=== PATIENT | male | born 1940 | race Caucasian/White ===

== ENCOUNTER 2017-08-01 17:31 | Emergency (ER) | payer OTHER, MEDICAID ==
[~2017-08-01] VITALS: Ht 160 cm; Wt 66.4 kg
[~2017-08-01 17:31] MED LIST: ATEN50TA8 PO; COZ50 PO; METF500T PO
[2017-08-01 17:33] VITALS: BP 151/73
--- NOTE | 2017-08-01 17:41 | NUR ---
PATIENT AMBULATED TO BED 12.
--- NOTE | 2017-08-01 18:20 | NUR ---
77m bib with c/o dry hacking cough, body aches, chills, 7/10 constant sore throat and heachache; Pt denies any sob or cp. Pt is aox4 with steady gait. Skin is warm/color appriopriate for ethnicity/dry. RR are even and unlabored. No acute distress. Er md de oliveira by bedside examining patient. Will continue to monitor.
[2017-08-01] MEDS ORDERED: KETOROLAC 30 MG/ML VIAL IVP ONE (18:25)
[2017-08-01] MEDS ORDERED: NACL 0.9% 1,000 ML IV ONE (18:25)
--- NOTE | 2017-08-01 18:44 | NUR ---
influenza swab collected and sent to lab
[2017-08-01 18:55] LABS: BASOPHILS # (AUTO) 0.5 K/uL (0.00-0.22); EOSINOPHILS # (AUTO) 0.4 K/uL (0-0.4); HEMATOCRIT 47.2 % (36-52); HEMOGLOBIN 15.5 g/dL (12.0-18.0); LYMPHOCYTES # (AUTO) 2.7 K/uL (2.0-11.5); MEAN CORPUSCULAR HEMOGLOBIN 30 pg (27-31); MEAN CORPUSCULAR HGB CONC 33 g/dL (33-37); NEUTROPHILS # (AUTO) 6.7 K/uL (1.8-7.7); PLATELET COUNT (AUTO) 248 K/uL (140-450); RED BLOOD CELL COUNT(AUTO) 5.13 MIL/uL (4.20-6.10); RED CELL DISTRIBUTION WIDTH 12.9 % (11.6-13.7); WHITE BLOOD COUNT (AUTO) 11.3 K/uL (4.8-10.8)
--- NOTE | 2017-08-01 19:29 | NUR ---
Pt report given to Kavitha GALLEGOS. Transfer of care at this time.
--- NOTE | 2017-08-01 19:30 | NUR ---
Patient appears to be resting comfortably in bed. Vital Signs within normal limits. Respirations even and unlabored.
[2017-08-01 20:32] LABS: ANION GAP 15.8 (8-16); ASPARTATE AMINOTRANSFERASE 14 U/L (15-37); CARBON DIOXIDE 28.1 mmol/L (21-32); CHLORIDE 99 mmol/L (98-107); POTASSIUM 3.9 mmol/L (3.5-5.1); SODIUM SERUM 139 mmol/L (136-145); TOTAL BILIRUBIN 0.8 mg/dL (0.0-1.0); UREA NITROGEN, BLOOD 20 mg/dL (7-18)
[2017-08-01] MEDS ORDERED: AMPICILLIN/SULBACTAM 1.5 GM in NACL 0.9% 50 ML IV ONE (20:50)
[2017-08-01 20:56] LABS: ALBUMIN 4.3 g/dL (3.4-5.0); CREATININE 1.2 mg/dL (0.7-1.3)
[2017-08-01 20:58] LABS: GLUCOSE 108 mg/dL (74-106)
[2017-08-01] MEDS ORDERED: AMPICILLIN/SULBACTAM 1.5 GM VIAL ONE (21:01)
--- NOTE | 2017-08-01 21:52 | NUR ---
Patient appears to be resting comfortably in bed. Respirations even and unlabored. All needs met at this time.
--- NOTE | 2017-08-01 22:50 | NUR ---
Patient discharged with v/s stable. Written and verbal after care instructions given and explained by Dr. Swan. Patient alert, oriented and verbalized understanding of instructions. Ambulatory with steady gait. All questions addressed prior to discharge. ID band removed. Patient advised to follow up with PMD. Rx given. Patient educated on indication of medication including possible reaction and side effects. Opportunity to ask questions provided and answered by Dr. Swan.
[2017-08-01 22:51] VITALS: BP 129/60
== END 2017-08-01 22:50 | disposition home or self-care (01) ==
LOC: MED 17:31
DX: J06.9 Acute upper respiratory infection, unspecified (principal); E11.9 Type 2 diabetes mellitus without complications; I10 Essential (primary) hypertension; E78.00 Pure hypercholesterolemia, unspecified
CPT/HCPCS: 36415; 71046; 80053; 83605; 84484; 85025; 87040; 87804; 93005; 96365; 96375; 99285; J0295; J1885

== ENCOUNTER 2017-09-03 14:02 | Inpatient (IN) | payer OTHER, MEDICAID ==
[~2017-09-03] VITALS: Ht 162.6 cm; Wt 65.8 kg
[2017-09-03 14:06] VITALS: BP 168/90
--- NOTE | 2017-09-03 14:12 | NUR ---
77Y/M BIB SON COMPLAINING OF LEFT SIDED CHEST PAIN RADIATING TO LEFT ARM, HEAD, AND NECK SINCE THIS MORNING. PATIENT DENIES N/V/D. RX CURRENTLY METFORMIN, ATENOLOL, LOSARTAN, AND TAMSULOSIN. HX HTN, DIABETES. SKIN IS PINK/WARM/DRY; AAOX4 WITH EVEN AND STEADY GAIT; PT DENIES ANY FEVER, PATIENT STATES PAIN OF 5/10 AT THIS TIME; PATIENT POSITIONED FOR COMFORT; HOB ELEVATED; BEDRAILS UP X2; BED DOWN. ER MD MADE AWARE OF PT STATUS.
--- NOTE | 2017-09-03 14:19 | NUR ---
PATIENT TO BED 11 AT THIS TIME,
[2017-09-03] MEDS ORDERED: NACL 0.9% 1,000 ML IV ONE (14:29)
[2017-09-03] MEDS ORDERED: ONDANSETRON 4 MG/2 ML VIAL IVP ONE (14:30)
[2017-09-03] MEDS ORDERED: MORPHINE SULFATE 4 MG/ML SYR IVP ONE (14:30)
[2017-09-03 15:15] LABS: BASOPHILS % (AUTO) 0.3 % (0.0-2.0); EOSINOPHILS % (AUTO) 0.4 % (0.0-4.0); HEMATOCRIT 42.6 % (36-52); HEMOGLOBIN 14.3 g/dL (12.0-18.0); LYMPHOCYTES # (AUTO) 2.2 K/uL (2.0-11.5); LYMPHOCYTES % (AUTO) 18.2 % (20.5-51.1); MEAN CORPUSCULAR HEMOGLOBIN 31 pg (27-31); MEAN CORPUSCULAR HGB CONC 34 g/dL (33-37); MEAN CORPUSCULAR VOLUME 92.8 fL (80-94); NEUTROPHILS # (AUTO) 8.8 K/uL (1.8-7.7); NEUTROPHILS % (AUTO) 73.1 % (42.2-75.2); PLATELET COUNT (AUTO) 245 K/uL (140-450); RED CELL DISTRIBUTION WIDTH 13.6 % (11.6-13.7); WHITE BLOOD COUNT (AUTO) 12.1 K/uL (4.8-10.8)
[2017-09-03 15:24] LABS: CARBON DIOXIDE 25.8 mmol/L (21-32); CHLORIDE 102 mmol/L (98-107); CREATININE 1.2 mg/dL (0.7-1.3); GLUCOSE 278 mg/dL (74-106); POTASSIUM 3.8 mmol/L (3.5-5.1); SODIUM SERUM 137 mmol/L (136-145); UREA NITROGEN, BLOOD 25 mg/dL (7-18)
[2017-09-03 15:30] LABS: ALBUMIN 3.4 g/dL (3.4-5.0); ASPARTATE AMINOTRANSFERASE 32 U/L (15-37); LIPASE 177 U/L (73-393); TOTAL BILIRUBIN 0.4 mg/dL (0.0-1.0)
[2017-09-03] MEDS ORDERED: ASPIRIN 325 MG TAB PO ONE (16:40)
[2017-09-03] MEDS ORDERED: NITROGLYCERIN 0.4 MG TAB SL ONE (16:40)
--- NOTE | 2017-09-03 17:22 | NUR ---
Patient will be admitted to care of DR. ENGEL. Admited to TELE. Will go to [facility]. Belongings list completed. Report to ROSY LANDEROS.
[2017-09-03 17:30] VITALS: BP 164/75
--- NOTE | 2017-09-03 17:30 | NUR ---
PATIENT WAS TRANSFERRED FROM ER. REPORT WAS GIVEN AT BEDSIDE. EMULSION OPERATOR WAS PLACED. PATIENT AWAKE, ALERT, AMBULATED SELF TO BED, STEADY GAIT. RESPIRATION EVEN, UNLABOR ON ROOM AIR. SKIN DRY AND WARM. IV PATENT AND INTACT. COMPLAINED OF CHEST PAIN THAT IS DECREASING TO 7/10, WILL MEDICATE PER ORDER. PLAN OF CARE WAS DISCUSSED WITH PATIENT. PATIENT WAS ORIENTED TO ROOM, STAFF, AND CALL LIGHT. VS IS TAKEN, MRSA WAS SWABBED. FAMILY AT BED SIDE. CALL LIGHT WITHIN REACH.
--- NOTE | 2017-09-03 18:15 | NUR ---
DR. ENGEL WAS MADE AWARE OF PATIENT'S HIGH BP AND CHEST PAIN. ORDERS WERE RECEIVED, WILL MEDICATE PER ORDER.
[2017-09-03] MEDS ORDERED: cloNIDine 0.1 MG TAB PO PRN (18:20)
--- NOTE | 2017-09-03 19:17 | NUR ---
ENDORSEMENT GIVEN TO THE DEPUTY JAILER NURSE. PATIENT IS STABLE
--- NOTE | 2017-09-03 19:18 | NUR ---
PATIENT REPORT RECEIVED FROM MORNING NURSE AT BEDSIDE. PATIENT IS AWAKE, ALERT AND ORIENTED. NEPALI SPEAKING. PATIENT'S FAMILY IS AT BEDSIDE. NO SIGNS AND SYMPTOMS OF DISTRESS NOTED. PATIENT COMPLAINS OF 7/10 HEADACHE. WILL MEDICATE ORDERED. PLAN OF CARE DISCUSSED WITH PATIENT AND FAMILY. FAMILY VERBALIZED UNDERSTANDING. BED IN LOWEST POSITION, SIDE RAILS UP AND CALL LIGHT WITHIN REACH. WILL CONTINUE TO MONITOR.
[2017-09-03 20:00] VITALS: BP 135/90
[2017-09-03] MEDS ORDERED: MORPHINE SULFATE 4 MG/ML SYR IVP PRN ×2 (20:05→20:20)
[2017-09-03] MEDS ORDERED: HYDROcodone/APAP 5/325 MG 1 TAB TAB PO PRN ×2 (20:05→20:20)
[2017-09-03] MEDS ORDERED: ALUMINUM HYD/MAG/SIMETHICONE 30 ML UDC PO PRN (20:20)
[2017-09-03] MEDS ORDERED: LORazepam 1 MG TAB PO PRN (20:20)
[2017-09-03] MEDS ORDERED: ZOLPIDEM 5 MG TAB PO PRN (20:20)
[2017-09-03] MEDS ORDERED: ONDANSETRON 4 MG/2 ML VIAL IVP PRN (20:20)
[2017-09-03] MEDS ORDERED: NITROGLYCERIN 0.4 MG TAB SL PRN (20:20)
[2017-09-03] MEDS: BLOOD GLUCOSE MONITORING 1 DEV DEV FS SCH (20:36)
--- NOTE | 2017-09-03 21:11 | NUR ---
MEDICATED PATIENT ORDERED FOR 11/18 PAIN. PATIENT TOLERATED WELL. WILL CONTINUE TO MONITOR.
--- NOTE | 2017-09-03 22:00 | NUR ---
CHECKED ON PATIENT. PATIENT IS ASLEEP. NO SIGNS AND SYMPTOMS OF DISTRESS NOTED. BREATHING EVEN AND UNLABORED. WILL CONTINUE TO MONITOR.
[2017-09-04] VITALS: BP 145/72
[2017-09-04 00:48] LABS: CREATINE KINASE MB 2.2 ng/mL (0-3.6)
--- NOTE | 2017-09-04 02:00 | NUR ---
CHECKED ON PATIENT. PATIENT IS ASLEEP. NO SIGNS AND SYMPTOMS OF DISTRESS NOTED. BREATHING EVEN AND UNLABORED. WILL CONTINUE TO MONITOR.
[2017-09-04 04:00] VITALS: BP 138/68
--- NOTE | 2017-09-04 05:00 | NUR ---
PATIENT COMPLAINED OF MILD HEADACHE. PATIENT MEDICATED ORDERED.
[2017-09-04] MEDS: ACETAMINOPHEN 325 MG TAB PO PRN ×2 (05:32→16:21)
[2017-09-04] MEDS: BLOOD GLUCOSE MONITORING 1 DEV DEV FS SCH ×5 (06:48→20:48)
--- NOTE | 2017-09-04 07:17 | NUR ---
PATIENT REPORT GIVEN TO MORNING NURSE AT BEDSIDE. PATIENT IS IN STABLE CONDITION
--- NOTE | 2017-09-04 07:17 | NUR ---
ASSUMED CONTINUITY OF CARE. NO SIGNS AND SYMPTOMS OF ACUTE DISTRESS NOTICED. INITIAL ASSESSMENT DONE. EXPLAINED DIAGNOSIS, PLAN OF CARE, PAIN MANAGEMENT TEACHING, USE OF CALL LIGHT/BED/TV/BATHROOM. VERBALIZED UNDERSTANDING. CALL LIGHT WITHIN REACH.
[2017-09-04 07:47] LABS: BASOPHILS % (AUTO) 0.4 % (0.0-2.0); EOSINOPHILS # (AUTO) 0.3 K/uL (0-0.4); EOSINOPHILS % (AUTO) 2.9 % (0.0-4.0); HEMOGLOBIN 14.5 g/dL (12.0-18.0); LYMPHOCYTES # (AUTO) 2.5 K/uL (2.0-11.5); LYMPHOCYTES % (AUTO) 27.7 % (20.5-51.1); MEAN CORPUSCULAR HEMOGLOBIN 31 pg (27-31); MEAN CORPUSCULAR HGB CONC 34 g/dL (33-37); MONOCYTES # (AUTO) 0.6 K/uL (0.8-1.0); MONOCYTES % (AUTO) 7.1 % (1.7-9.3); NEUTROPHILS # (AUTO) 5.5 K/uL (1.8-7.7); NEUTROPHILS % (AUTO) 61.9 % (42.2-75.2); PLATELET COUNT (AUTO) 226 K/uL (140-450); RED BLOOD CELL COUNT(AUTO) 4.62 MIL/uL (4.20-6.10); RED CELL DISTRIBUTION WIDTH 13.7 % (11.6-13.7); WHITE BLOOD COUNT (AUTO) 8.9 K/uL (4.8-10.8)
[2017-09-04 08:00] VITALS: BP 119/66
[2017-09-04] MEDS: DOCUSATE SODIUM 100 MG GELCAP PO SCH (08:18)
[2017-09-04] MEDS: metFORMIN 500 MG TAB PO SCH ×2 (08:18→16:19)
[2017-09-04 08:23] LABS: ANION GAP 8.9 (8-16); CARBON DIOXIDE 29.8 mmol/L (21-32); CHLORIDE 102 mmol/L (98-107); GLUCOSE 151 mg/dL (74-106); POTASSIUM 4.7 mmol/L (3.5-5.1); SODIUM SERUM 136 mmol/L (136-145); UREA NITROGEN, BLOOD 19 mg/dL (7-18)
[2017-09-04] MEDS: LOSARTAN 50 MG TAB PO SCH ×2 (08:25→09:51)
[2017-09-04 08:27] LABS: MAGNESIUM 1.8 mg/dL (1.8-2.4); PHOSPHORUS 3.2 mg/dL (2.5-4.9)
[2017-09-04 08:38] LABS: CREATINE KINASE MB 1.4 ng/mL (0-3.6)
[2017-09-04] MEDS ORDERED: ATENOLOL 50 MG TAB PO SCH (09:00)
--- NOTE | 2017-09-04 09:48 | NUR ---
CRYS FLANAGAN CAME, INFORMED OF PT. C/O HEADACHE ON THE LEFT SIDE THAT RADIATES TO LEFT SHOULDER THROUGH LEFT SIDE OF CHEST 06/21. PER CRYS FLANAGAN THAT IS MOSTLY FROM NECK PROBLEM NOT A HEART PROBLEM. ASKED CRYS FLANAGAN FOR ORDERS. NO ORDER RECEIVED. ALSO INFORMED CRYS FLANAGAN ABOUT PT. HEART RATE AT 0800 WAS 53. PER RCYS FLANAGAN, "OK TO GIVE COZAAR 50 MG PO DAILY, AND START ATENOLOL 25 MG PO DAILY 11/05/17 AND HOLD IF HR BELOW 60." INFORMED CHARGE NURSE GWYN LY -ROSY.
--- NOTE | 2017-09-04 09:55 | NUR ---
PATIENT HAS BEEN SCREENED AND CATEGORIZED MODERATE NUTRITION RISK. PATIENT WILL BE SEEN WITHIN 3-5 DAYS OF ADMISSION. 09/06/17 - 09/08/[address]
--- NOTE | 2017-09-04 10:35 | NUR ---
WENT TO RADIOLOGY VIA WHEELCHAIR. IN STABLE CONDITION.
--- NOTE | 2017-09-04 11:44 | NUR ---
CALLED CRYS FLANAGAN AND INFORMED OF PT. EKG RESULTS OF SB, HR 53 BPM, INFERIOR INFARCT. NO ORDER RECEIVED. ALSO INFORMED CHARGE NURSE GWYN GARIBAY.
[2017-09-04] MEDS: INSULIN LISPRO SLIDING SCALE 100 UNITS/ML VIAL SUBQ PRN ×2 (11:59→20:51)
[2017-09-04 12:00] VITALS: BP 133/69
--- NOTE | 2017-09-04 14:25 | NUR ---
WENT TO BATHROOM WITHOUT ASSISTANCE. TOLERATED WELL. NO C/O PAIN. NO SOB, NOTED.
--- NOTE | 2017-09-04 15:23 | NUR ---
CM NOTE INITIAL REVIEW FAXED TO [facility] / FAX# [phone]
[2017-09-04 16:00] VITALS: BP 125/72
--- NOTE | 2017-09-04 16:00 | NUR ---
VITALS SIGNS STABLE. C/O HEADACHE 10/19. NO ACUTE DISTRESS NOTED. WILL MEDICATE PER MD ORDER.
--- NOTE | 2017-09-04 19:08 | NUR ---
BEDSIDE REPORT GIVEN TO NATE GARIBAY. IN STABLE CONDITION.
--- NOTE | 2017-09-04 19:10 | NUR ---
RECEIVED PATIENT SITTING ON THE SIDE OF THE BED WITH FAMILY MEMBER. BED IN LOW POSITION, CALL LIGHT WITHIN REACH. DISCUSSED ABOUT PLAN OF CARE. WILL CONTINUE TO MONITOR.
[2017-09-04 20:00] VITALS: BP 115/60
--- NOTE | 2017-09-04 21:00 | NUR ---
BLOOD SUGAR TEST 187 COVERAGE WITH 2 UNITS SUBQ HUMALOG FOLLOWING PROTOCOL.
--- NOTE | 2017-09-04 23:30 | NUR ---
SEEN PATIENT ASLEEP IN BED BUT EASILY AROUSABLE. FALL PRECAUTION IMPLEMENTED. CALL LIGHT WITHIN REACH. WILL CONTINUE TO MONITOR
[2017-09-05] VITALS: BP 111/63
--- NOTE | 2017-09-05 01:05 | NUR ---
SEEN PATIENT ASLEEP IN COMFORTABLE POSITION. BED IN LOW POSITION. CALL LIGHT WITHIN REACH.
--- NOTE | 2017-09-05 03:20 | NUR ---
SEEN PATIENT ASLEEP ON BED BUT EASILY AROUSABLE. CALL LIGHT WITHIN REACH.
[2017-09-05 04:00] VITALS: BP 112/66
--- NOTE | 2017-09-05 05:20 | NUR ---
SEEN PATIENT AWAKE SITTING IN THE SIDE OF THE BED. PATIENT IS AMBULATORY AND INDEPENDENT . CALL LIGHT WITHIN REACH.
[2017-09-05 05:44] LABS: BASOPHILS % (AUTO) 0.4 % (0.0-2.0); EOSINOPHILS # (AUTO) 0.5 K/uL (0-0.4); EOSINOPHILS % (AUTO) 4.5 % (0.0-4.0); HEMATOCRIT 44.7 % (36-52); HEMOGLOBIN 15.3 g/dL (12.0-18.0); LYMPHOCYTES # (AUTO) 2.9 K/uL (2.0-11.5); LYMPHOCYTES % (AUTO) 28.7 % (20.5-51.1); MEAN CORPUSCULAR HEMOGLOBIN 32 pg (27-31); MEAN CORPUSCULAR HGB CONC 34 g/dL (33-37); MEAN CORPUSCULAR VOLUME 93.3 fL (80-94); MONOCYTES # (AUTO) 0.7 K/uL (0.8-1.0); MONOCYTES % (AUTO) 7.2 % (1.7-9.3); NEUTROPHILS % (AUTO) 59.2 % (42.2-75.2); PLATELET COUNT (AUTO) 240 K/uL (140-450); RED BLOOD CELL COUNT(AUTO) 4.79 MIL/uL (4.20-6.10); RED CELL DISTRIBUTION WIDTH 13.4 % (11.6-13.7); WHITE BLOOD COUNT (AUTO) 10.2 K/uL (4.8-10.8)
[2017-09-05 06:30] LABS: ANION GAP 11.1 (8-16); CARBON DIOXIDE 31.6 mmol/L (21-32); CHLORIDE 99 mmol/L (98-107); GLUCOSE 164 mg/dL (74-106); POTASSIUM 4.7 mmol/L (3.5-5.1); SODIUM SERUM 137 mmol/L (136-145); UREA NITROGEN, BLOOD 28 mg/dL (7-18)
--- NOTE | 2017-09-05 07:35 | NUR ---
ENDORSEMENT GIVEN TO AM SHIFT NURSE FOR CONTINUITY OF CARE. PATIENT IN STABLE CONDITION.
--- NOTE | 2017-09-05 07:36 | NUR ---
RECEIVED REPORT FROM NON PROFIT DIRECTOR NURSE. PATIENT LYING DOWN IN BED SLEEPING, AROUSABLE BY VOICE. NO DISTRESS NOTED. DENIES ANY PAIN AT THIS TIME. RESPIRATIONS EVEN, UNLABORED, ON ROOM AIR. AAOX4, CALM, COOPERATIVE, SKIN COLOR APPROPRIATE TO ETHNICITY, WARM TO TOUCH. SKIN IS INTACT. ABDOMEN SOFT, NON-DISTENDED. LUNGS CTA ON ALL LOBES. IV SITE INTACT, PATENT, ON SALINE LOCK. REVIEWED PLAN OF CARE WITH PATIENT. PATIENT VERBALIZED UNDERSTANDING. SAFETY MEASURES IN PLACE, CALL LIGHT WITHIN REACH. WILL CONTINUE TO MONITOR.
[2017-09-05 08:00] VITALS: BP 123/70
[2017-09-05] MEDS: DOCUSATE SODIUM 100 MG GELCAP PO SCH (08:36)
[2017-09-05] MEDS: metFORMIN 500 MG TAB PO SCH (08:37)
[2017-09-05] MEDS: LOSARTAN 50 MG TAB PO SCH (08:37)
--- NOTE | 2017-09-05 08:38 | NUR ---
PATIENT WALKING AROUND AT BEDSIDE WITH STEADY GAIT. NO DISTRESS NOTED. DENIES ANY PAIN. SCHEDULED MEDICATIONS DUE GIVEN. SAFETY MEASURES IN PLACE, CALL LIGHT WITHIN REACH. WILL CONTINUE TO MONITOR.
[2017-09-05] MEDS ORDERED: ATENOLOL 50 MG TAB PO SCH (09:00)
--- NOTE | 2017-09-05 11:30 | NUR ---
PATIENT SITTING DOWN IN BED WATCHING TV. NO DISTRESS NOTED. DENIES ANY PAIN. CONDITION UNCHANGED. WILL CONTINUE TO MONITOR.
[2017-09-05] MEDS: INSULIN LISPRO SLIDING SCALE 100 UNITS/ML VIAL SUBQ PRN (11:43)
[2017-09-05] MEDS: BLOOD GLUCOSE MONITORING 1 DEV DEV FS SCH (11:44)
[2017-09-05 12:01] VITALS: BP 116/60
--- NOTE | 2017-09-05 13:30 | NUR ---
DR. ENGEL AT BEDSIDE REVIEWING PLAN OF CARE WITH PATIENT. PATIENT TO BE DISCHARGED HOME TODAY. WILL PREPARE DISCHARGE PAPERWORK. WILL CONTINUE TO MONITOR.
[2017-09-05] MEDS ORDERED: ATEN50TA2 PO (13:40)
--- NOTE | 2017-09-05 14:40 | NUR ---
DISCHARGE INSTRUCTIONS PROVIDED TO PATIENT IN [place], FAMILY MEMBERS AT BEDSIDE, PATIENT PREFERRED TO HAVE FAMILY MEMBER TRANSLATE DISCHARGE INSTRUCTIONS INSTEAD OF USING OFFICIAL BLUE PLATEN BUILDER UP PHONE THAT WAS OFFERED TO HIM. FOLLOW-UP VISIT WITH MD, NEW/CHANGED. MEDICATIONS REGIMEN, DIET REGIMEN, AND DISEASE PROCESS/MANAGEMENT OF CHEST PAIN EDUCATION PROVIDED TO PATIENT. ANSWERED ALL OF PATIENT'S/FAMILY QUESTIONS REGARDING DISCHARGE. ID BANDS REMOVED. IV SITE REMOVED WITH MINIMAL BLOOD AND LUMEN COMPLETELY INTACT. PATIENT TO GET DRESSED AND THEN TO DISCHARGE HOME WITH FAMILY MEMBERS AT BEDSIDE. WILL CONTINUE TO MONITOR.
--- NOTE | 2017-09-05 16:10 | NUR ---
FAXED CONCURRENT REVIEW TO [facility] [phone] PHONE [phone]
--- NOTE | 2017-09-08 14:27 | NUR ---
RECEIVED REQUEST FROM [facility] FOR H&P, DISCHARGE SUMMARY AND MED RECONCILIATION LIST. ALL FAXED TO [facility] AT [phone] PHONE BRISSA [phone]
== END 2017-09-05 14:55 | disposition home or self-care (01) | DRG 556 ==
LOC: MED 14:02 → MMU 17:01 → MTU 17:22
PROVIDERS: ADMIT Preventive Medicine Preventive Medicine/Occupational Environmental Medicine; ATTEND Preventive Medicine Preventive Medicine/Occupational Environmental Medicine
DX: M79.1 Myalgia (principal); E11.65 Type 2 diabetes mellitus with hyperglycemia; I11.9 Hypertensive heart disease without heart failure; R07.89 Other chest pain; R00.1 Bradycardia, unspecified; E83.51 Hypocalcemia; R79.89 Other specified abnormal findings of blood chemistry; M50.90 Cervical disc disorder, unspecified, unspecified cervical region; R51 Headache; D72.829 Elevated white blood cell count, unspecified; E78.5 Hyperlipidemia, unspecified; M47.812 Spondylosis without myelopathy or radiculopathy, cervical region; T44.7X5A Adverse effect of beta-adrenoreceptor antagonists, initial encounter; Z90.49 Acquired absence of other specified parts of digestive tract; Y92.89 Other specified places as the place of occurrence of the external cause; Z79.899 Other long term (current) drug therapy
CPT/HCPCS: 36415; 70450; 71045; 72040; 80048; 80053; 82550; 82553; 82948; 83690; 83735; 84100; 84484; 85025; 87081; 93005; 96361; 96374; 96375; 99285; J2270; J2405

== ENCOUNTER 2018-04-20 10:05 | Emergency (ER) | payer OTHER, MEDICAID ==
[~2018-04-20] VITALS: Ht 160 cm; Wt 74.8 kg
[~2018-04-20 10:05] MED LIST changes: +ATEN50TA2 PO; -ATEN50TA8 PO
--- NOTE | 2018-04-20 10:07 | NUR ---
PT AMBULATED TO ER BED 07
[2018-04-20 10:12] VITALS: BP 133/47
--- NOTE | 2018-04-20 10:25 | NUR ---
BROUGHT IN BY FAMILY PT C/O AWOKE WITH GENERAL WEAKNESS, EQUALLY NUMBNESS; OCCIPITAL HEADACHE X TODAY; DENIES INJURY; FULL CLEAR SPEECH, NO FACIAL ASYMMETRY NOTED, DENIES JOSUE, ADMITS TO WEAKNESS EQUALLY TO ALL EXTREMITIES DENIES N/V/D; SKIN IS PINK/WARM/DRY; AAOX4; LUNGS CLEAR BL; HR EVEN AND REGULAR; PT DENIES ANY FEVER, CP, SOB, OR COUGH AT THIS TIME; PATIENT STATES PAIN OF 0/10 AT THIS TIME; VSS; PATIENT POSITIONED FOR COMFORT; HOB ELEVATED; BEDRAILS UP X2; BED DOWN. ER MD MADE AWARE OF PT STATUS.
--- NOTE | 2018-04-20 10:33 | NUR ---
DR RÍOS AT BEDSIDE.
--- NOTE | 2018-04-20 10:50 | NUR ---
PT TAKEN TO CT AT THIS TIME
--- NOTE | 2018-04-20 10:57 | NUR ---
BACK FROM CT SCAN.
[2018-04-20] MEDS ORDERED: KETOROLAC 60 MG/2 ML VIAL IM ONE (11:40)
--- NOTE | 2018-04-20 11:59 | NUR ---
Patient discharged with v/s stable. Written and verbal after care instructions given and explained. Patient alert, oriented and verbalized understanding of instructions. Ambulatory with to car. All questions addressed prior to discharge. ID band removed. Patient advised to follow up with PMD. Rx of MOTRIN, NORCO given. Patient educated on indication of medication including possible reaction and side effects. Opportunity to ask questions provided and answered.
[2018-04-20 12:00] VITALS: BP 125/55
== END 2018-04-20 11:59 | disposition home or self-care (01) ==
LOC: MED 10:05
DX: R51 Headache (principal); R20.0 Anesthesia of skin; E11.9 Type 2 diabetes mellitus without complications; Z90.89 Acquired absence of other organs; Z79.84 Long term (current) use of oral hypoglycemic drugs
CPT/HCPCS: 70450; 96372; 99284; J1885